=== PATIENT | female | born 1995 | race Caucasian/White ===

== ENCOUNTER 2017-03-13 19:26 | Emergency (ER) | payer OTHER ==
--- NOTE | 2017-03-13 21:47 | ED NURSING NOTES ---
Clinical Report - Nurses [facility] [address] [place] [address] 03/13/2017 19:27 Patient: LINDA VERAS TRIAGE Triage time 19:30. Acuity: LEVEL 3. Chief Complaint: DIZZINESS, WEAKNESS and LIGHT HEADED and (sycopal episode). LAUREN COMA SCORE: Lauren Coma Scale: 15- eyes open spontaneously (4); best verbal response- oriented x 4 (5); best motor response- obeys commands (6). --19:36 Amie Monet R.N. 19:30 03/13/17. BP: 131/98. HR: 102. RR: 15. O2 saturation: 98% on room air. Temp: 98.9 F (oral). Pain level now: 0/10. --19:36 Amie Monet R.N. Weight: 86.1 kg stated. Height/Length: 59 inches Per Patient. BMI: 38.4. --19:34 Amie Monet R.N. Medications Albuterol INH. Benzonatate Oral. Flonase Nasal. --19:33 Amie Monet R.N. Depo-Provera Intramuscular, last dose 3 months ago. --19:33 Amie Monet R.N. Allergies Sulfa Antibiotics. (Mother and patient state not allergic ) --19:33 Amie Monet R.N. History Arrived by EMS. Historian: patient. Primary physician (None). ( pt was at work tonight and became light headed and had syncopal episode and was assisted to floor (did not head head) and EMS call. Medic evaluated her and BLS transported.). This started just prior to arrival and today. She has had nausea. No vomiting. Treatment LOAN ASSOCIATE: See EMS report. PAST MEDICAL HX: Immunizations: up-to-date. Last normal menstrual period- about 3 months ago. SOCIAL HX: Never smoker. Occasional alcohol use. History of drug use: marijuana. --19:36 Amie Monet R.N. ( pt states she has been having similar symptoms on and off for past month & 1/2.). --19:37 Amie Monet R.N. PROBLEMS: Endometriosis. Ovarian Cyst. Lifestyle / Substance Problems. Changed Mental Status. Seizure Disorder. Anxiety Reaction. Asthma. Bronchitis. Depression. Pseudoseizure. --19:34 Amie Monet R.N. ADDITIONAL SURGERIES: Endoscopy. --19:34 Amie Monet R.N. Interventions ID band on patient. To treatment room. --19:36 Amie Monet R.N. PHYSICAL ASSESSMENT To room via stretcher. GENERAL / NEURO / PSYCH: Oriented X 4. Appears in no acute distress. Alert. Speech within normal limits. HEENT: No facial asymmetry noted. RESPIRATORY: Respirations not labored. CVS: Capillary refill less than 2 seconds. SKIN: Skin is warm and dry. --19:36 Amie Monet R.N. NURSING PROGRESS NOTES Head of bed elevated. Two patient identifiers checked. Call light placed in reach. Side rails up x 2. Bed placed in lowest position. Brakes of bed on. --19:36 Amie Monet R.N. Patient ready for evaluation- chart flagged. --19:36 Amie Monet R.N. 19:37 03/13/17. BP: 132/71 taken while lying. HR: 90. --19:38 Amie Monet R.N. 19:39 03/13/17. BP: 133/78 taken while sitting. HR: 91. --19:39 Amie Monet R.N. 19:40 03/13/17. BP: 139/83 taken while standing. HR: 101. --19:41 Amie Monet R.N. 20:00 03/13/2017 Site #1 started via IV in the right antecubital space with an 20g angiocath, with aseptic technique and good blood return; one attempt. Blood drawn: rainbow set. Labeled in the presence of the patient and sent to the lab. --20:00 Amie Monet R.N. 20:00 03/13/2017 Started IV Fluids IV NS (Saline); at 1000 mL/hr via site #1 via IV pump. Allergies verified and confirmed 5 rights. IV patency established. IV site checked: no pain, redness, or swelling. IV flushed thoroughly pre- and post-medication administration. --20:00 Amie Monet R.N. 20:07 03/13/2017 Reglan (Metoclopramide HCl) IVP 10 mg given over 3 minute(s) via site #1. Allergies verified and confirmed 5 rights. IV patency established. IV site checked: no pain, redness, or swelling. IV flushed thoroughly pre- and post-medication administration. IVP given by RN. --20:13 Amie Monet R.N. ( pt ambulates to restroom to obtain urine sample. pt reports dizziness upon standing. pt assisted to restroom and reminded to take it slow.). --20:14 Amie Monet R.N. Patient ID band checked for patient name and birthdate: patient confirmed. Instructions provided to collect clean catch urine and patient verbalized understanding. Clean catch urine collected with return of yellow-colored clear urine; sample sent to lab. Specimen labeled in the presence of the patient. --20:19 Amie Monet R.N. 20:59 03/13/2017 Started bag #2 1000 mL IV Fluids IV NS (Saline); at 1000 mL/hr over 1 hour(s) via site #1 via IV pump. Allergies verified and confirmed 5 rights. IV patency established. IV site checked: no pain, redness, or swelling. IV flushed thoroughly pre- and post-medication administration. --20:59 Amie Monet R.N. 20:59 03/13/2017 IV Fluids IV NS Discontinued: bag #1 completed. Total amount infused: 1000 mL. IV patency established. IV site checked: no pain, redness, or swelling. IV flushed thoroughly. --20:59 Amie Monet R.N. 20:59 03/13/17. BP: 117/46. HR: 85. RR: 15. O2 saturation: 99% on room air. Pain level now: 0/10. --20:59 Amie Monet R.N. The patient is calm and resting quietly. Overall patient status- she states feels better. --21:00 Amie Monet R.N. 21:20 03/13/17. BP: 117/77. HR: 85. RR: 15. O2 saturation: 100% on room air. Lacey-Hong pain scale: 0/10. --21:20 Amie Monet R.N. ( pt ambulates to restroom and back to bed. No complaints of dizziness at this time.). --21:41 Amie Monet R.N. DISPOSITION / DISCHARGE Condition at departure: improved and stable. No learning barriers present. Discharge instructions provided and reviewed with the patient. Work note given. Patient verbalized understanding. Written instructions provided in Nicaraguan. The patient was discharged home and accompanied by drug abuse treatment specialist. She left the Emergency Department ambulatory and via private vehicle. Auto Headlight Mechanic driving. --22:17 Amie Monet R.N. 22:16 03/13/17. BP: 105/76. HR: 87. RR: 15 (regular and unlabored). O2 saturation: 98% on room air. Temp: deferred. Pain level now: 0/10. --22:17 Amie Monet R.N. 22:00 03/13/2017 IV Fluids IV NS Discontinued: bag #2 completed. Total amount infused: 1000 mL. IV patency established. IV site checked: no pain, redness, or swelling. IV flushed thoroughly. --22:17 Amie Monet R.N. 22:13 03/13/2017 Site #1 removed upon discharge. Catheter intact. Manual pressure and bandage applied. --22:17 Amie Monet R.N. ( extensive teaching done about importance of drinking plenty of water. Pt states understanding.). --22:19 Amie Monet R.N. Locked/Released at 03/13/2017 22:19 by Amie Monet R.N.
--- NOTE | 2017-03-13 21:47 | ED ORDER SUMMARY ---
..... Patient: LINDA VERAS OrderSheet [facility] VisitID: [id number] [place] [address] 21y, F Registration Date/Time: 03/13/2017 ORDER SHEET Weight: 86.1 kg (stated) Allergies: Sulfa Antibiotics GENERAL ORDERS: CBC w Diff Urgent (20:00 03/13/2017 RCollier R.N. verbal order read back to Apolinar Dutton) (Ack 20:19 Johnieimana) (20:44 RCollier R.N.) Vitals - Orthostatic (20:00 03/13/2017 RCollier R.N. verbal order read back to Apolinar Dutton) (20:00 RCollier R.N.) CMP Urgent (20:05 03/13/2017 Apolinar Dutton) (Ack 20:20 Rodrick) (20:44 RCollier R.N.) UA-Culture if indicated Urgent (20:05 03/13/2017 Apolinar Dutton) (Ack 20:20 Rodrick) (20:44 RCollier R.N.) Urine Urgent (20:05 03/13/2017 Apolinar Dutton) (Ack 20:20 Rodrick) (20:44 RCollier R.N.) Urine Drug Screen Urgent (20:05 03/13/2017 Apolinar Dutton) (Ack 20:20 Martinana) (20:44 RCollier R.N.) MEDICATION ORDERS: IV FLUIDS: IV NS : initial bolus 1000 mL (1000 mL/hr), then 1000 mL/hr (NOW) (19:59 03/13/2017 RCollier R.N. verbal order read back to Apolinar Dutton) (Ack 20:00 RCollier R.N.) (20:00 RCollier R.N.) Reglan IV 10 mg (NOW) (20:05 03/13/2017 Apolinar Dutton) (Ack 20:06 RCollier R.N.) (20:13 RCollier R.N.) ORDER SHEET NOTES: [Electronically signed by Gopal Parker Dr. (21:53 03/13/2017)] [Electronically signed by Amie Monet R.N. (:19 03/13/2017)] [Electronically locked/signed by Amie Monet R.N. (:03/13/2017)]
--- NOTE | 2017-03-13 21:47 | ED CLINICAL REPORT ---
Clinical Report - Physicians/Mid Levels [facility] [address] [address] 03/13/2017 19:27 Patient: LINDA VERAS Time Seen: 19:31; initial patient contact. Arrived- By ambulance. Historian- patient. HISTORY OF PRESENT ILLNESS The patient recovered at the scene. Chief Complaint: NEAR-SYNCOPE. This occurred just prior to arrival. Event was witnessed. The patient had preceding symptoms of light-headedness, nausea and dim vision. No preceding symptoms of chest pain. At time of event, she was standing. The patient felt faint. No seizure activity, incontinence or apnea noted. Currently she has no symptoms. No injuries noted. Similar symptoms previously: Several times. Recent medical care: Not recently seen/assessed. REVIEW OF SYSTEMS The patient has had a headache. No dizziness, weakness, chest pain, palpitations or vomiting. All systems otherwise negative, except as recorded above. PAST HISTORY ( Endometriosis. Ovarian Cyst. Lifestyle / Substance Problems. Changed Mental Status. Seizure Disorder. Anxiety Reaction. Asthma. Bronchitis. Depression. Pseudoseizure. SURGERIES: Endoscopy). SOCIAL HISTORY Never smoker. Occasional alcohol use. History of drug use: marijuana. ADDITIONAL NOTES The nursing notes have been reviewed. PHYSICAL EXAM Vital Signs: 03/13/2017 19:30 BP: 131/98. HR: 102. RR: 15. O2 saturation: 98%. Temp: 98.9 F. Pain level now: 0/10. Have been reviewed. Hypertensive. Tachycardic. Respiratory rate normal. Temperature normal. Oxygen saturation normal. Appearance: Alert. No acute distress. ENT: Normal ENT inspection. Dry mucous membranes present. Neck: Normal inspection. CVS: Normal heart rate and rhythm. Heart sounds normal. Respiratory: No respiratory distress. Breath sounds normal. Abdomen: Soft and nontender. No organomegaly. Skin: Skin warm and dry. Normal skin color. No rash. Extremities: No lower extremity edema. Neuro: Alert. Oriented X 3. Mood/affect normal. Speech normal. LABS, X-RAYS, AND EKG Laboratory Tests: UA-Culture if indicated: (GRIFFIN: 03/13/2017 20:15) ( [facility] 03/13/2017 20:43) Final results Test Result Flag Units (Reference) URINE COLOR YELLOW URINE APPEARANCE CLEAR URINE GLUCOSE NEGATIVE (NEGATIVE) URINE BILIRUBIN NEGATIVE (NEGATIVE) URINE KETONE NEGATIVE (NEGATIVE) URINE SPECIFIC GRAVITY 1.020 (1.010-1.030) URINE PH 7.0 (5.0-8.0) URINE PROTEIN NEGATIVE (NEGATIVE) URINE UROBILINOGEN 0.2 EU/dL (0.2-1.0) URINE NITRITE NEGATIVE (NEGATIVE) URINE BLOOD NEGATIVE (NEGATIVE) URINE LEUK ESTERASE NEGATIVE (NEGATIVE) URINE RBC 0-1 rbc/hpf (0-1) URINE WBC 3-5 wbc/hpf (0-1) URINE EPITHELIAL CELLS 3-5 EPI/hpf (0-5) URINE BACTERIA MODERATE (2+ TO 3+) (NONE SEEN) URINE COMMENT Y URINE CULTURES ARE SET-UP BASED ON THE FOLLOWING CRITERIA:POSITIVE NITRITEPOSITIVE LEUKOCYTE ESTERASEGREATER THAN 10 WHITE BLOOD CELLSMODERATE (2+) OR GREATER BACTERIA Urine: (GRIFFIN: 03/13/2017 20:15) ( [facility] 03/13/2017 20:30) Final results Test Result Flag Units (Reference) URINE NEGATIVE CBC w Diff: (GRIFFIN: 03/13/2017 19:55) ( [facility] 03/13/2017 20:15) Final results Test Result Flag Units (Reference) WHITE BLOOD COUNT 9.4 K/uL (4.5-11.5) RED BLOOD COUNT 5.28 H M/uL (4.00-5.20) HEMOGLOBIN 14.2 gm/dL (12.0-16.0) HEMATOCRIT 42.1 % (36.0-46.0) MEAN CELL VOLUME 80 fL (80-100) MEAN CORPUSCULAR HGB 27 pg (26-34) MEAN CORPUSCULAR HGB CONC 34 g/dL (31-37) RED CELL DISTRIBUTION WIDTH 13.2 % (11.6-14.8) PLATELET COUNT 228 K/uL (150-400) NEUTROPHIL % 68.0 % (50-75) LYMPH % 24.3 L % (25-40) MONO % 6.8 % (3-14) EOSINOPHIL % 0.6 % (0-4) BASOPHIL % 0.3 % (0-2) Urine Drug Screen: (GRIFFIN: 03/13/2017 20:15) ( MsgRcvd 03/13/2017 20:43) Final results Test Result Flag Units (Reference) AMPHETAMINE/METHAMPHETAMINE NEGATIVE (NEGATIVE) BARBITURATE NEGATIVE (NEGATIVE) BENZODIAZEPINE NEGATIVE (NEGATIVE) CANNABINOID POSITIVE H (NEGATIVE) COCAINE NEGATIVE (NEGATIVE) ECSTASY NEGATIVE (NEGATIVE) METHADONE NEGATIVE (NEGATIVE) OPIATE NEGATIVE (NEGATIVE) The urine drug screen is a qualitative screening test fordrug overdose and abuse. All screen results should beconsidered as presumptive.Drugs screened for are as follows:BenzodiazepinesCocaineAmphetamines/MetamphetaminesTHC (Tetrahydrocannabinol)OpiatesBarbituratesEcstasyMethadonePositive results are unconfirmed. For confirmation, notifythe lab for the specimen to be sent to the reference lab.All confirmations must be performed by a differentmethodology.The ingestion of natural herbal and plant productscontaining Ephedra/Ephedra metabolites can produce in urineone or more substances capable of cross reacting withamphetamine/methamphetamine immunoassays. These testsprovide a preliminary result only. A more specificalternative chemical method must be used to obtain aconfirmed analytical result. CMP: (GRIFFIN: 03/13/2017 19:55) ( MsgRcvd 03/13/2017 20:27) Final results Test Result Flag Units (Reference) GLUCOSE 130 H mg/dL (70-110) BUN 12 mg/dL (7-18) CREATININE 0.7 mg/dL (0.6-1.3) Estimated GFR >60 mL/min Estimated GFR- >60 mL/min Note: Persistent reduction over 3 months in eGFR<60 mL/min/1.73 m2 defines CKD. Patients with eGFR values>=60 mL/min/1.73 m2 may also have CKD if evidence ofpersistent proteinuria. Additional information may be foundat www.kidney.org. SODIUM 142 mmol/L (136-145) POTASSIUM 3.5 mmol/L (3.5-5.1) CHLORIDE 106 mmol/L (98-107) CARBON DIOXIDE 25 mmol/L (21-32) CALCIUM 8.7 mg/dL (8.5-10.1) TOTAL PROTEIN 7.0 g/dL (6.4-8.2) ALBUMIN 3.8 g/dL (3.3-5.0) BILIRUBIN, TOTAL 0.3 mg/dL (0.0-1.0) ALKALINE PHOSPHATASE 74 U/L (46-116) AST (SGOT) 14 L U/L (15-37) ALT (SGPT) 27 U/L (12-78) . PROGRESS AND PROCEDURES Course of Care: 22:19. Looking markedly better and feeling better. Evaluation after repeat exam and IV fluids. Disposition: Discharged home in good and improved condition. Condition: good. CLINICAL IMPRESSION Vasovagal syncope INSTRUCTIONS Do not work today, tomorrow. Drink plenty of fluids. Your Current Medications: CONTINUE TAKING THE FOLLOWING MEDICATIONS: Albuterol INH*. Benzonatate Oral. Depo-Provera Intramuscular : Last: 3 months ago. Flonase Nasal. Follow-up: Follow up with your doctor in two days. Call for an appointment. Screening today revealed the patient's blood pressure to be in the normal range. (Electronically signed by Gopal Parker Dr. 03/13/2017 21:53)
--- NOTE | 2017-03-13 21:47 | ED CLINICAL REPORT ---
Clinical Report - Physicians/Mid Levels [facility] [address] [place] [address] 03/13/2017 19:27 Patient: LINDA VERAS Time Seen: 19:31; initial patient contact. Arrived- By ambulance. Historian- patient. HISTORY OF PRESENT ILLNESS The patient recovered at the scene. Chief Complaint: NEAR-SYNCOPE. This occurred just prior to arrival. Event was witnessed. The patient had preceding symptoms of light-headedness, nausea and dim vision. No preceding symptoms of chest pain. At time of event, she was standing. The patient felt faint. No seizure activity, incontinence or apnea noted. Currently she has no symptoms. No injuries noted. Similar symptoms previously: Several times. Recent medical care: Not recently seen/assessed. REVIEW OF SYSTEMS The patient has had a headache. No dizziness, weakness, chest pain, palpitations or vomiting. All systems otherwise negative, except as recorded above. PAST HISTORY ( Endometriosis. Ovarian Cyst. Lifestyle / Substance Problems. Changed Mental Status. Seizure Disorder. Anxiety Reaction. Asthma. Bronchitis. Depression. Pseudoseizure. SURGERIES: Endoscopy). SOCIAL HISTORY Never smoker. Occasional alcohol use. History of drug use: marijuana. ADDITIONAL NOTES The nursing notes have been reviewed. PHYSICAL EXAM Vital Signs: 03/13/2017 19:30 BP: 131/98. HR: 102. RR: 15. O2 saturation: 98%. Temp: 98.9 F. Pain level now: 0/10. Have been reviewed. Hypertensive. Tachycardic. Respiratory rate normal. Temperature normal. Oxygen saturation normal. Appearance: Alert. No acute distress. ENT: Normal ENT inspection. Dry mucous membranes present. Neck: Normal inspection. CVS: Normal heart rate and rhythm. Heart sounds normal. Respiratory: No respiratory distress. Breath sounds normal. Abdomen: Soft and nontender. No organomegaly. Skin: Skin warm and dry. Normal skin color. No rash. Extremities: No lower extremity edema. Neuro: Alert. Oriented X 3. Mood/affect normal. Speech normal. LABS, X-RAYS, AND EKG Laboratory Tests: UA-Culture if indicated: (GRIFFIN: 03/13/2017 20:15) ( [facility] 03/13/2017 20:43) Final results Test Result Flag Units (Reference) URINE COLOR YELLOW URINE APPEARANCE CLEAR URINE GLUCOSE NEGATIVE (NEGATIVE) URINE BILIRUBIN NEGATIVE (NEGATIVE) URINE KETONE NEGATIVE (NEGATIVE) URINE SPECIFIC GRAVITY 1.020 (1.010-1.030) URINE PH 7.0 (5.0-8.0) URINE PROTEIN NEGATIVE (NEGATIVE) URINE UROBILINOGEN 0.2 EU/dL (0.2-1.0) URINE NITRITE NEGATIVE (NEGATIVE) URINE BLOOD NEGATIVE (NEGATIVE) URINE LEUK ESTERASE NEGATIVE (NEGATIVE) URINE RBC 0-1 rbc/hpf (0-1) URINE WBC 3-5 wbc/hpf (0-1) URINE EPITHELIAL CELLS 3-5 EPI/hpf (0-5) URINE BACTERIA MODERATE (2+ TO 3+) (NONE SEEN) URINE COMMENT Y URINE CULTURES ARE SET-UP BASED ON THE FOLLOWING CRITERIA:POSITIVE NITRITEPOSITIVE LEUKOCYTE ESTERASEGREATER THAN 10 WHITE BLOOD CELLSMODERATE (2+) OR GREATER BACTERIA Urine: (GRIFFIN: 03/13/2017 20:15) ( [facility] 03/13/2017 20:30) Final results Test Result Flag Units (Reference) URINE NEGATIVE CBC w Diff: (GRIFFIN: 03/13/2017 19:55) ( [facility] 03/13/2017 20:15) Final results Test Result Flag Units (Reference) WHITE BLOOD COUNT 9.4 K/uL (4.5-11.5) RED BLOOD COUNT 5.28 H M/uL (4.00-5.20) HEMOGLOBIN 14.2 gm/dL (12.0-16.0) HEMATOCRIT 42.1 % (36.0-46.0) MEAN CELL VOLUME 80 fL (80-100) MEAN CORPUSCULAR HGB 27 pg (26-34) MEAN CORPUSCULAR HGB CONC 34 g/dL (31-37) RED CELL DISTRIBUTION WIDTH 13.2 % (11.6-14.8) PLATELET COUNT 228 K/uL (150-400) NEUTROPHIL % 68.0 % (50-75) LYMPH % 24.3 L % (25-40) MONO % 6.8 % (3-14) EOSINOPHIL % 0.6 % (0-4) BASOPHIL % 0.3 % (0-2) Urine Drug Screen: (GRIFFIN: 03/13/2017 20:15) ( MsgRcvd 03/13/2017 20:43) Final results Test Result Flag Units (Reference) AMPHETAMINE/METHAMPHETAMINE NEGATIVE (NEGATIVE) BARBITURATE NEGATIVE (NEGATIVE) BENZODIAZEPINE NEGATIVE (NEGATIVE) CANNABINOID POSITIVE H (NEGATIVE) COCAINE NEGATIVE (NEGATIVE) ECSTASY NEGATIVE (NEGATIVE) METHADONE NEGATIVE (NEGATIVE) OPIATE NEGATIVE (NEGATIVE) The urine drug screen is a qualitative screening test fordrug overdose and abuse. All screen results should beconsidered as presumptive.Drugs screened for are as follows:BenzodiazepinesCocaineAmphetamines/MetamphetaminesTHC (Tetrahydrocannabinol)OpiatesBarbituratesEcstasyMethadonePositive results are unconfirmed. For confirmation, notifythe lab for the specimen to be sent to the reference lab.All confirmations must be performed by a differentmethodology.The ingestion of natural herbal and plant productscontaining Ephedra/Ephedra metabolites can produce in urineone or more substances capable of cross reacting withamphetamine/methamphetamine immunoassays. These testsprovide a preliminary result only. A more specificalternative chemical method must be used to obtain aconfirmed analytical result. CMP: (GRIFFIN: 03/13/2017 19:55) ( MsgRcvd 03/13/2017 20:27) Final results Test Result Flag Units (Reference) GLUCOSE 130 H mg/dL (70-110) BUN 12 mg/dL (7-18) CREATININE 0.7 mg/dL (0.6-1.3) Estimated GFR >60 mL/min Estimated GFR- >60 mL/min Note: Persistent reduction over 3 months in eGFR<60 mL/min/1.73 m2 defines CKD. Patients with eGFR values>=60 mL/min/1.73 m2 may also have CKD if evidence ofpersistent proteinuria. Additional information may be foundat www.kidney.org. SODIUM 142 mmol/L (136-145) POTASSIUM 3.5 mmol/L (3.5-5.1) CHLORIDE 106 mmol/L (98-107) CARBON DIOXIDE 25 mmol/L (21-32) CALCIUM 8.7 mg/dL (8.5-10.1) TOTAL PROTEIN 7.0 g/dL (6.4-8.2) ALBUMIN 3.8 g/dL (3.3-5.0) BILIRUBIN, TOTAL 0.3 mg/dL (0.0-1.0) ALKALINE PHOSPHATASE 74 U/L (46-116) AST (SGOT) 14 L U/L (15-37) ALT (SGPT) 27 U/L (12-78) . PROGRESS AND PROCEDURES Course of Care: 22:19. Looking markedly better and feeling better. Evaluation after repeat exam and IV fluids. Disposition: Discharged home in good and improved condition. Condition: good. CLINICAL IMPRESSION Vasovagal syncope INSTRUCTIONS Do not work today, tomorrow. Drink plenty of fluids. Your Current Medications: CONTINUE TAKING THE FOLLOWING MEDICATIONS: Albuterol INH*. Benzonatate Oral. Depo-Provera Intramuscular : Last: 3 months ago. Flonase Nasal. Follow-up: Follow up with your doctor in two days. Call for an appointment. Screening today revealed the patient's blood pressure to be in the normal range. (Electronically signed by Gopal Parker Dr. 03/13/2017 21:53)
--- NOTE | 2017-03-13 21:47 | ED ORDER SUMMARY ---
..... Patient: LINDA VERAS OrderSheet [facility] VisitID: [id number] [place] [address] 21y, F Registration Date/Time: 03/13/2017 ORDER SHEET Weight: 86.1 kg (stated) Allergies: Sulfa Antibiotics GENERAL ORDERS: CBC w Diff Urgent (20:00 03/13/2017 RCollier R.N. verbal order read back to Apolinar Dutton) (Ack 20:19 Johnieimana) (20:44 RCollier R.N.) Vitals - Orthostatic (20:00 03/13/2017 RCollier R.N. verbal order read back to Apolinar Dutton) (20:00 RCollier R.N.) CMP Urgent (20:05 03/13/2017 Apolinar Dutton) (Ack 20:20 Rodrick) (20:44 RCollier R.N.) UA-Culture if indicated Urgent (20:05 03/13/2017 Apolinar Dutton) (Ack 20:20 Rodrick) (20:44 RCollier R.N.) Urine Urgent (20:05 03/13/2017 Apolinar Dutton) (Ack 20:20 Rodrick) (20:44 RCollier R.N.) Urine Drug Screen Urgent (20:05 03/13/2017 Apolinar Dutton) (Ack 20:20 Martinana) (20:44 RCollier R.N.) MEDICATION ORDERS: IV FLUIDS: IV NS : initial bolus 1000 mL (1000 mL/hr), then 1000 mL/hr (NOW) (19:59 03/13/2017 RCollier R.N. verbal order read back to Apolinar Dutton) (Ack 20:00 RCollier R.N.) (20:00 RCollier R.N.) Reglan IV 10 mg (NOW) (20:05 03/13/2017 Apolinar Dutton) (Ack 20:06 RCollier R.N.) (20:13 RCollier R.N.) ORDER SHEET NOTES: [Electronically signed by Gopal Parker Dr. (21:53 03/13/2017)] [Electronically signed by Amie Monet R.N. (:19 03/13/2017)] [Electronically locked/signed by Amie Monet R.N. (:03/13/2017)]
--- NOTE | 2017-03-13 22:20 | ED MED RECONCILIATION SUMMARY ---
Patient: LINDA VERAS Medication Reconciliation Report [facility] VisitID: [id number] [address] [place] [address] 21y, F Registration Date/Time: 03/13/2017 Weight: 86.1 kg Height/Length: 59 in. BMI: 38.4 ALLERGIES: Sulfa Antibiotics The patient's Home Medications are listed below: CONTINUE TAKING THE FOLLOWING MEDICATIONS: Albuterol INH Benzonatate Oral Depo-Provera Intramuscular, last dose: 3 months ago Flonase Nasal The source(s) of the original Home Medication information: Not obtained. The following Medications were given to the patient in the Emergency Department: IV NS IV Fluids bolus 0, then 1000 mL/hr, administered: 03/13/2017 8:00:00 PM Reglan [IVP] IVP 10 mg, administered: 03/13/2017 8:07:00 PM IV NS IV Fluids bolus 0, then 1000 mL/hr, administered: 03/13/2017 8:59:00 PM The following Medications were prescribed to the patient: None.
--- NOTE | 2017-03-13 22:20 | ED DISCHARGE INSTRUCTIONS ---
Patient: LINDA VERAS General Instructions [facility] VisitID: [id number] [place] [address] 21y, F Registration Date/Time: 03/13/2017 Vasovagal syncope INSTRUCTIONS Do not work today, tomorrow. Drink plenty of fluids. Your Current Medications: CONTINUE TAKING THE FOLLOWING MEDICATIONS: Albuterol INH*. Benzonatate Oral. Depo-Provera Intramuscular : Last: 3 months ago. Flonase Nasal. Follow-up: Follow up with your doctor in two days. Call for an appointment. Screening today revealed the patient's blood pressure to be in the normal range. ADDITIONAL INFORMATION Fainting:Vagal Reaction Fainting (syncope) is a temporary loss of consciousness ("passing out"). It occurs when blood flow to the brain is reduced. Your doctor believes that your episode was due to a vagal reaction. This condition is not a sign of serious disease. A vagal reaction is a reflex response that causes the pulse to slow down or the blood vessels to dilate. This causes the blood pressure to fall, reducing the blood flow to the brain if you are standing or sitting. That results in dizziness, near-fainting or fainting. Lying down usually stops the reaction within 60 seconds. This reflex response can occur during sudden fear, severe pain, emotional stress, overexertion, overheating, hunger, nausea or vomiting, prolonged standing or standing up after sitting or lying for a long time. Home Care: 1) Rest today and resume your normal activities as soon as you are feeling back to normal. 2) If you become light-headed or dizzy, lie down immediately or sit with your head lowered between your knees. Follow Up with your doctor as instructed. Get Prompt Medical Attention if any of the following occur: -- Another fainting spell occurs, which is not explained by the common causes listed above -- Chest, arm, neck, jaw, back or abdominal pain -- Shortness of breath -- Severe headache or seizure -- Blood in vomit, stools (black or red color) -- Unexpected vaginal bleeding -- Palpitations (very rapid or very slow or irregular heart beat) -- Signs of stroke: Weakness of an arm or leg or one side of the face Difficulty with speech or vision Extreme drowsiness, confusion, dizziness or fainting You have been given the following additional information: Syncope, Vasovagal Do not work today, tomorrow. (Electronically signed by Gopal Parker Dr. 03/13/2017 21:53)
--- NOTE | 2017-03-13 22:20 | ED MED RECONCILIATION SUMMARY ---
Patient: LINDA VERAS Medication Reconciliation Report [facility] VisitID: [id number] [address] [place] [address] 21y, F Registration Date/Time: 03/13/2017 Weight: 86.1 kg Height/Length: 59 in. BMI: 38.4 ALLERGIES: Sulfa Antibiotics The patient's Home Medications are listed below: CONTINUE TAKING THE FOLLOWING MEDICATIONS: Albuterol INH Benzonatate Oral Depo-Provera Intramuscular, last dose: 3 months ago Flonase Nasal The source(s) of the original Home Medication information: Not obtained. The following Medications were given to the patient in the Emergency Department: IV NS IV Fluids bolus 0, then 1000 mL/hr, administered: 03/13/2017 8:00:00 PM Reglan [IVP] IVP 10 mg, administered: 03/13/2017 8:07:00 PM IV NS IV Fluids bolus 0, then 1000 mL/hr, administered: 03/13/2017 8:59:00 PM The following Medications were prescribed to the patient: None.
--- NOTE | 2017-03-13 22:20 | ED MAR SUMMARY ---
..... Medication Administration Record [facility] [address] [place] [address] Patient: LINDA VERAS Visit ID: [id number] 21y, F Weight: 86.1 kg Height/Length: 59 in BMI: 38.4 ALLERGIES: Sulfa Antibiotics Start 20:00 03/13/2017 Amie Monet R.N., Stop 20:59 03/13/2017 Amie Monet R.N. Medication Administered: IV NS (SALINE), Dose: IV Fluids, Rate: 1000 mL/hr, Site: #1 right AC. Medication Ordered: IV NS : initial bolus 1000 mL (1000 mL/hr), then 1000 mL/hr (NOW). Given 20:07 03/13/2017 Amie Monet R.N. Medication Administered: REGLAN [IVP] (METOCLOPRAMIDE HCL), Dose: 10 mg IVP over 3 minute(s), Site: #1 right AC. Medication Ordered: Reglan IV 10 mg (NOW). Start 20:59 03/13/2017 Amie Monet RSera, Stop 22:00 03/13/2017 Amie Monet R.N. Medication Administered: IV NS (SALINE), Dose: IV Fluids over 1 hour(s), Rate: 1000 mL/hr, Dispensed: 1000 mL bag, Site: #1 right AC. Medication Ordered: IV NS : initial bolus 1000 mL (1000 mL/hr), then 1000 mL/hr (NOW).
--- NOTE | 2017-03-13 22:20 | ED MAR SUMMARY ---
..... Medication Administration Record [facility] [address] [place] [address] Patient: LINDA VERAS Visit ID: [id number] 21y, F Weight: 86.1 kg Height/Length: 59 in BMI: 38.4 ALLERGIES: Sulfa Antibiotics Start 20:00 03/13/2017 Amie Monet R.N., Stop 20:59 03/13/2017 Amie Mnoet R.N. Medication Administered: IV NS (SALINE), Dose: IV Fluids, Rate: 1000 mL/hr, Site: #1 right AC. Medication Ordered: IV NS : initial bolus 1000 mL (1000 mL/hr), then 1000 mL/hr (NOW). Given 20:07 03/13/2017 Amie Monet R.N. Medication Administered: REGLAN [IVP] (METOCLOPRAMIDE HCL), Dose: 10 mg IVP over 3 minute(s), Site: #1 right AC. Medication Ordered: Reglan IV 10 mg (NOW). Start 20:59 03/13/2017 Amie Monet RSera, Stop 22:00 03/13/2017 Amie Monet R.N. Medication Administered: IV NS (SALINE), Dose: IV Fluids over 1 hour(s), Rate: 1000 mL/hr, Dispensed: 1000 mL bag, Site: #1 right AC. Medication Ordered: IV NS : initial bolus 1000 mL (1000 mL/hr), then 1000 mL/hr (NOW).
== END 2017-03-13 22:15 | disposition home or self-care (01) ==
LOC: ED SRH 19:26
DX: R55 Syncope and collapse (principal); J45.909 Unspecified asthma, uncomplicated; G40.909 Epilepsy, unspecified, not intractable, without status epilepticus; Z79.899 Other long term (current) drug therapy; Z88.2 Allergy status to sulfonamides
CPT/HCPCS: 90004; 90100; 90469; 92760; 92761; 92762; 92763; 92764; 92765; 92766; 92767; 93070; 95059